=== PATIENT | male | born 2000 | race Hispanic/Latino ===

== ENCOUNTER 2022-10-14 00:42 | Emergency (ER) | payer MEDICAID, OTHER ==
[~2022-10-14] VITALS: Ht 162.6 cm; Wt 108.0 kg
[2022-10-14] MEDS ORDERED: AMOX1TAB16 PO (02:24)
[2022-10-14] MEDS ORDERED: AMOX/CLAV 875/125MG TAB PO ONE (02:30)
[2022-10-14] MEDS ORDERED: TETANUS/DIPHTHERIA TOXOID [ADULT] 0.5 ML VIAL IM ONE (02:30)
[2022-10-14] MEDS ORDERED: KETOROLAC 60 MG VIAL (30MG/ML) IM ONE (02:30)
[2022-10-14 03:08] VITALS: BP 140/88
== END 2022-10-14 03:10 | disposition home or self-care (01) ==
LOC: EDH 00:42
DX: M79.642 Pain in left hand (principal); W54.0XXA Bitten by dog, initial encounter; Y93.89 Activity, other specified; Y92.89 Other specified places as the place of occurrence of the external cause; Y99.8 Other external cause status
CPT/HCPCS: 99284; 90714; 96372; 90471; J1885